=== PATIENT | male | born 1990 | race Caucasian/White ===

== ENCOUNTER 2020-08-28 10:11 | Outpatient (RCR) | payer MEDICARE, MEDICAID, SELFPAY | END 2020-11-17 11:28 | disposition other institution (70) | LOC: HO.SH 10:11 | PROVIDERS: Visit Provider Internal Medicine | DX: F80.0 Phonological disorder (principal); F80.82 Social pragmatic communication disorder | CPT/HCPCS: 92507 ==

== ENCOUNTER 2020-10-13 13:00 | Outpatient (RCR) | payer MEDICARE, MEDICAID, SELFPAY ==
--- NOTE | 2020-08-01 16:16 | MHC.SL.POC ---
Name: Jann Almazan Date of : 1990 Age: 30 Date of Registration: 07/21/20 Referring provider: Danuta Diego M.D. 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 Jann has been seen twice monthly at the [facility] since his initial evaluation on 04/19/16. Jann was highly motivated to participate in speech therapy, and demonstrated excellent compliance to home program maintenance. Recently, Jann?s progress has plateaued, and this speech-language evaluation was ordered to identify areas of weakness, provide further recommendations, and assist in developing a plan for discharge. Jann attended this evaluation in-person with proper safety measures during the COVID19 pandemic, which include social distancing, mask wearing, and hygiene (disinfecting of materials, hand washing). Jann was unaccompanied. Assessment: ARTICULATION: Throughout his years in speech therapy, Jann has been working on his articulation skills and improving overall speech intelligibility. Direct therapy targeted syllable shapes, multisyllabic words/phrases, and certain speech sounds. Jann has a structural difference (i.e. right ventriculoperitoneal ([employer]) shunt)), which contributes to many of his speech sound distortions, and production of these sounds cannot be corrected with speech therapy. For that reason, manner and placement were targeted for fricative and affricate sounds with an aim for improved approximations to increase intelligibility. Jann also practiced other compensatory strategies for improved intelligibility and to repair communication breakdowns. Today Jann was administered the Mcallister Fristoe Test of Articulation- 3rd Edition (GFTA-3), which assesses articulation at the single word level. Each consonant sound in the Bengali language was probed in the initial, final, and medial positions. Standardized scores are not reported as this assessment tool is not normed on adults Jann?s age and these scores would be invalid. Nevertheless, objective data is valuable in monitoring Jann?s progress in articulation. Jann?s speech sound substitutions, omissions, and distortions are consistent with the following patterns: 1.Final consonant deletion (pig produced as ?pih?; house produced as ?how?) 2.Vowelization (apple produced as ?alvin-uh?) 3.Consonant cluster reduction (quack produced as ?kack?; spider produced as ?pi-duh?; plate produced as ?davidsno?) 4.Stopping (fish produced as ?fit?) 5.Assimilation (guitar produced as ?joel-gah?) 6.Gliding (ring produced as ?wing?) 7.Deaffrication (watch produced as ?what?) Jann?s production of affricate and fricative sounds are very distorted, and nasal emission is also perceived. His productions often consistent of open syllable shapes, but when reminded to focus on his sounds, Jann does self-correct and places extra emphasis on marking the final sounds. Consonant clusters are often reduced to a single sound. Jann produces increased speech sound errors and simplifications with word length. These errors significantly impact others? ability to understand Jann?s utterances. Jann was administered Tikofsky?s 50-word Intelligibility Test (Davidkofsky 1970) as an informal measure of his overall speech intelligibility. Jann was presented with single words, which he read aloud for the clinician. The clinician wrote the word she perceived based on Jann?s verbal production. A percentage was calculated for the number of words the clinician understood. According to this calculation, Jann was approximately 46% intelligible at the single word level without context. In conversation, the clinician often used context from sentence structure, environment, and situation, to deduce Jann?s messages when he speaks. FUNCTIONAL COMMUNICATION: Jann was administered the Communication Activities of Daily Living- Second Edition (CADL-2) as a measure of his functional communication and its use in activities of daily living (i.e. reading medication labels, calling for appointments, etc.). This assessment requires the direct observation of communication acts in simulated natural environments. Jann?s raw score of 76 on this assessment correlates to a stanine of 5 and percentile rank of 51%. Jann appropriately responded to the clinician?s greeting with ?Hi?How are you?...?How was your day?? Jann also generated an appropriate script when role playing checking in for a medical appointment. He stated, ?Yes you can help me. I am Gonzalo Almazan, checking in to see Dr. Hernandez today for an appointment.? Jann also pulled out an ID when asked to provide identification. It is noted that Jann independently checks in for his speech therapy appointments routinely. Jann exhibited some difficulty filling out paperwork, likely secondary to difficulty reading certain words. However, Jann scribbled on some lines and did not make an attempt to ask for assistance. Jann appropriately used several other pragmatic phrases throughout the session such as ?bless you,? ?thank you,? and ?you?re welcome.? When the clinician asked, ?Your name is Jeremy, isn?t it?? Jann politely corrected her. Jann appropriately answered questions related to his life, including his job and participation in speech therapy. He appears aware of his articulation impairment and reduced intelligibility, stating, ?I work on sounds because people don?t understand me.? Jann demonstrated independence with several communication tasks of daily living, including selecting items on a lunch menu, reading a bus schedule, selecting buttons on an elevator, reading restroom signs, making lists to shop for groceries, and searching appropriate aisles based on category. In a role pay scenario as part of testing, Jann described his ideal response to an emergency situation- ?calling 911? and reporting a fire. Jann exhibited difficulty marking items on a calendar. He marked with a cross, dash, or an ?X? but did not indicate what he was marking the calendar for (a birthday constitution party). He also exhibited difficulty computing time differences and anderson change. Jann was provided with cues assisting him in matching emotions with facial expressions. Jann ended the conversation abruptly by responding ?Yupp? when the clinician stated, ?That?s the end of these questions. I enjoyed being with you very much.? This is consistent with observations made throughout his speech sessions. Recommendations: Recommend 4 final speech therapy visits twice monthly targeting functional communication goals. Long-Term Goal 1: Jann will use a variety of intelligibility strategies (i.e. comprehension check, syllabification, describing, visuals) to independently repair communication breakdowns. Long-Term Goal 2: Jann will identify compensatory strategies for functional communication (i.e. writing on a calendar). Long-Term Goal 3: Jann will follow pragmatic rules to appropriately begin conversation, maintain topic, and end conversation. Short-Term Objectives: Gonzalo will employ strategies to compensate for reduced speech intelligibility (writing, gesture, description) in 4 out of 5 opportunities when provided with minimal cues. Gonzalo will appropriately end a conversation/ conversational topic in 4 out of 5 opportunities when provided with minimal verbal reminders. Gonzalo will hussain events on a calendar using words, letters, and visuals in 80% of trials with moderate assistance. Gonzalo will use compensatory strategies (i.e. refer to a visual, requesting help) to assist in completing paperwork (i.e. intake forms) in 4 out of 5 trials with moderate assistance. Recommended Referrals: ENT Consult Pleater Hand Clinican/Clinical Fellow: No Supervisory Statement: I have reviewed and agree with the documentation written by the student/clinical fellow: N/A Speech Language Pathologist: Sarahi Cervantes M.A., CCC-LAB ANALYST
== END 2020-11-17 11:28 | disposition other institution (70) ==
LOC: HO.SH 13:00
PROVIDERS: PCP Internal Medicine; Visit Provider Internal Medicine
DX: F80.0 Phonological disorder (principal); F80.82 Social pragmatic communication disorder
CPT/HCPCS: 92523